=== PATIENT | female | born 2005 | race Caucasian/White ===

== ENCOUNTER → 2025-04-29 | Day surgery (SDC) | payer BC ==
[~2025-04-29] MED LIST: FENTANYL CITRATE/PF 100MCG/2 ML INJ ONE; LIDOCAINE HCL 2% LOCAL INJ 5 ML SDV VIAL INJ ONE; MIDAZOLAM HCL 2 MG/2 ML VIAL ONE; PROAIR DIGIHAL90 MCG; PROPOFOL IV EMULSION 10 MG/ML 20 ML VIAL ONE
[2025-04-29 12:30] VITALS: TEMP 97.6
[2025-04-29 12:55] VITALS: BP 121/83; PULSE 75; RESP 16; O2SAT 96
[2025-04-29] MEDS: LACTATED RINGER'S 1,000 ML ONE (13:31)
== END | disposition home or self-care (01) ==
LOC: OR 10:33
PROVIDERS: ATTEND Internal Medicine Gastroenterology
DX: K29.60 Other gastritis without bleeding (principal); K31.89 Other diseases of stomach and duodenum; J45.909 Unspecified asthma, uncomplicated; Z98.84 Bariatric surgery status; Z88.0 Allergy status to penicillin; Z88.2 Allergy status to sulfonamides; Z88.1 Allergy status to other antibiotic agents; Z68.42 Body mass index [BMI] 45.0-49.9, adult; Z79.899 Other long term (current) drug therapy; Z01.818 Encounter for other preprocedural examination
CPT/HCPCS: 43239; 81025; J2003; J2250; J2704; J3010; J7121